=== PATIENT | female | born 1955 | race Caucasian/White ===

== ENCOUNTER → 2023-04-12 08:57 | Outpatient (REF) | payer MEDICARE, SELFPAY ==
[2023-04-12 10:56] LABS: TSH Reflex To Free T4 1.93 uIU/ml (0.47-4.68)
[2023-04-14 03:22] LABS: ANA, IgG Reflex to HEp-2 None Detected (None Detected)
[2023-04-14 07:51] LABS: SSA 52 (Ro)(ENA) Ab, IgG 7 AU/mL (0-40); SSA 60 (Ro)(ENA) Ab, IgG 0 AU/mL (0-40); SSB (La)(ENA) Ab, IgG 0 AU/mL (0-40)
[2023-04-14 07:54] LABS: Myeloperoxidase Antibody 0 AU/mL (0-19); Serine Protease-3, IgG 0 AU/mL (0-19)
[2023-04-15 09:25] LABS: Vitamin B6 Results 42.6 nmol/L (20.0-125.0)
[2023-04-15 21:00] LABS: Albumin 4.52 g/dL (3.75-5.01); Alpha 1 Globulin 0.29 g/dL (0.19-0.46); Alpha 2 Globulin 0.68 g/dL (0.48-1.05); SPEP IFE Reflex Not Done; Total Protein-Electrophoresis 7.4 g/dL (6.3-8.2)
== END ==
LOC: REG 08:57
PROVIDERS: ATTENDING PHYSICIAN Psychiatry & Neurology Neurology; OTHER PHYSICIAN Internal Medicine Rheumatology; REFERRING PHYSICIAN Internal Medicine
DX: G62.0 Drug-induced polyneuropathy (principal); M35.00 Sjogren syndrome, unspecified; G60.9 Hereditary and idiopathic neuropathy, unspecified
CPT/HCPCS: 36415; 83516; 84155; 84165; 84207; 84443; 86038; 86235

== ENCOUNTER → 2023-05-03 18:25 | Outpatient (REF) | payer MEDICARE, SELFPAY | LOC: CLAB 18:25 | PROVIDERS: ATTENDING PHYSICIAN Otolaryngology | DX: D37.04 Neoplasm of uncertain behavior of the minor salivary glands (principal) | CPT/HCPCS: 88305; 88342 ==

== ENCOUNTER → 2023-05-15 13:32 | Outpatient (REF) | payer MEDICARE, SELFPAY | LOC: RAD 13:32 | PROVIDERS: ATTENDING PHYSICIAN Nurse Practitioner | DX: J40 Bronchitis, not specified as acute or chronic (principal) | CPT/HCPCS: 71046 ==

== ENCOUNTER → 2023-06-04 07:14 | Outpatient (REF) | payer MEDICARE, SELFPAY ==
[2023-06-04 07:45] LABS: Urine Albumin Negative (Neg - Trace); Urine Bilirubin Negative (Negative); Urine Character Clear (Clear); Urine Color Yellow; Urine Glucose Negative (Negative); Urine Ketone Negative (Negative); Urine Leukocyte Negative (Negative); Urine Nitrite Negative (Negative); Urine Occult Blood Negative (Negative); Urine Specific Gravity 1.015 (<1.030); Urine Urobilinogen Negative (Neg - 1+)
[2023-06-04 07:53] LABS: % Basophils 0.8 % (0-2); % Eosinophils 3.7 % (0-6); % Immature Granulocytes 0.2 % (0-0.5); % Lymphocytes 31.3 % (20.5-51.1); % Monocytes 7.3 % (1.7-9.3); % Neutrophils 56.7 % (42.2-75.2); Absolute Eosinophils 0.2 10^3/uL (0-0.7); Absolute Lymphocytes 1.5 10^3/uL (1.2-3.4); Absolute Monocytes 0.4 10^3/uL (0.1-0.6); Absolute Neutrophils 2.7 10^3/uL (1.4-6.5); Hematocrit 37.4 % (37.0-47.0); Hemoglobin 12.6 g/dL (12.0-16.0); Mean Corp Hgb Conc. 33.7 g/dL (33.0-37.0); Mean Corpuscular Hgb 30.1 pg (27.0-31.0); Mean Corpuscular Volume 89.3 fL (81.0-99.0); Mean Platelet Volume 9.9 fL (7.4-10.4); Nucleated Red Blood Cells % 0 %; Platelet Count 198 10^3/uL (130-400); Red Blood Cell Count 4.19 10^6/uL (4.20-5.40); Red Cell Dist. Width 12.8 % (11.5-14.5); White Blood Cell Count 4.8 10^3/uL (4.8-10.8)
[2023-06-04 08:08] LABS: ALT (SGPT) 27 U/L (0-35); AST (SGOT) 31 U/L (14-36); Albumin 4.7 g/dl (3.5-5.0); Alkaline Phosphatase 70 U/L (38-126); Blood Urea Nitrogen 20 mg/dl (7-17); Calcium 9.5 mg/dl (8.4-10.2); Carbon Dioxide 27 mmol/L (22-30); Chloride 107 mmol/L (98-107); Creatine Phosphokinase 59 U/L (30-135); Glucose 101 mg/dl (70-99); Potassium 4.1 mmol/L (3.5-5.1); Sodium 138 mmol/L (135-145); Total Bilirubin 0.8 mg/dl (0.2-1.3); Total Protein 7.5 g/dl (6.3-8.2); eGFR > 60.00
[2023-06-04 08:09] LABS: Erythrocyte Sed Rate 17 mm/hour (0-20)
[2023-06-04 08:18] LABS: C-Reactive Protein < 5.00 mg/L (0.0-10.00)
[2023-06-04 08:35] LABS: Vitamin D, 25-OH*** 56.2 ng/mL (30-80)
[2023-06-04 08:38] LABS: Hepatitis B Surface Antigen Negative (Negative)
[2023-06-04 08:55] LABS: Hepatitis C Antibody Negative (Negative)
[2023-06-04 09:24] LABS: Folate > 20.0 ng/ml (2.76-20); Vitamin B12 741 pg/ml (239-931)
[2023-06-06 00:23] LABS: Complement C3 105 mg/dl (88-165)
[2023-06-06 01:25] LABS: CCP Antibody IgG/IgA 3 Units (0-19)
[2023-06-09 01:14] LABS: Cryoglobulin NEG 72Hour (NEG 72Hour)
[2023-06-10 16:17] LABS: Rheumatoid Agglutinin Less Than 10 IU (<10 IU)
== END ==
LOC: REG 07:14
PROVIDERS: ATTENDING PHYSICIAN Internal Medicine Rheumatology; FAMILY PHYSICIAN Nurse Practitioner
DX: D89.1 Cryoglobulinemia (principal); E55.9 Vitamin D deficiency, unspecified; G62.9 Polyneuropathy, unspecified; M25.50 Pain in unspecified joint; M35.00 Sjogren syndrome, unspecified; Z11.59 Encounter for screening for other viral diseases; Z68.27 Body mass index [BMI] 27.0-27.9, adult; Z79.899 Other long term (current) drug therapy; R73.03 Prediabetes
CPT/HCPCS: 36415; 80053; 81003; 82306; 82550; 82595; 82607; 82746; 83036; 85025; 85652; 86140; 86160; 86200; 86430; 86803; 87340

== ENCOUNTER → 2023-07-19 15:25 | Outpatient (REF) | payer MEDICARE, SELFPAY | LOC: WDC 15:25 | PROVIDERS: ATTENDING PHYSICIAN Nurse Practitioner | DX: Z12.31 Encounter for screening mammogram for malignant neoplasm of breast (principal) | CPT/HCPCS: 77063; 77067 ==

== ENCOUNTER → 2023-07-25 10:34 | Outpatient (REF) | payer MEDICARE, SELFPAY | LOC: WDC 10:34 | PROVIDERS: ATTENDING PHYSICIAN Nurse Practitioner | DX: R92.8 Other abnormal and inconclusive findings on diagnostic imaging of breast (principal) | CPT/HCPCS: 76642 ==

== ENCOUNTER → 2023-08-22 10:19 | Outpatient (REF) | payer MEDICARE, SELFPAY | LOC: RAD 10:19 | PROVIDERS: ATTENDING PHYSICIAN Physician Assistant; FAMILY PHYSICIAN Nurse Practitioner | DX: R10.32 Left lower quadrant pain (principal) | CPT/HCPCS: 74177; Q9967 ==

== ENCOUNTER → 2024-01-27 14:49 | Outpatient (REF) | payer MEDICARE, SELFPAY | LOC: WDC 14:49 | PROVIDERS: ATTENDING PHYSICIAN Internal Medicine | DX: N63.20 Unspecified lump in the left breast, unspecified quadrant (principal); R92.8 Other abnormal and inconclusive findings on diagnostic imaging of breast | CPT/HCPCS: 76642 ==

== ENCOUNTER → 2024-02-19 08:55 | Outpatient (REF) | payer MEDICARE, SELFPAY ==
[2024-02-19 14:40] LABS: Iron 74 ug/dl (37-170)
[2024-02-19 14:49] LABS: Percent Saturation 25 % (20-50); Total Iron Binding Capacity 290 ug/dl (265-497)
[2024-02-19 14:57] LABS: Prolactin 5.3 ng/ml (3.0-18.6)
[2024-02-19 15:11] LABS: TSH 0.82 uIU/ml (0.47-4.68)
[2024-02-19 15:17] LABS: Ferritin 37.7 ng/ml (11.1-264.0)
[2024-02-21 16:01] LABS: Thyroid Peroxidase Ab (TPO) <0.3 IU/mL (0.0-9.0)
[2024-02-21 16:15] LABS: Thyroglobulin 24.3 ng/mL (1.3-31.8); Thyroglobulin Antibodies <0.9 IU/mL (0.0-4.0)
[2024-02-22 01:17] LABS: Total T3 (Sendout) 88 ng/dL (80-200)
== END ==
LOC: REG 08:55
PROVIDERS: ATTENDING PHYSICIAN General Practice; FAMILY PHYSICIAN Internal Medicine
DX: L65.9 Nonscarring hair loss, unspecified (principal); Z79.899 Other long term (current) drug therapy
CPT/HCPCS: 36415; 82728; 83540; 83550; 84146; 84432; 84439; 84443; 84480; 86376; 86800

== ENCOUNTER → 2024-06-25 07:57 | Outpatient (REF) | payer MEDICARE, SELFPAY | LOC: RAD 07:57 | PROVIDERS: ATTENDING PHYSICIAN Internal Medicine; FAMILY PHYSICIAN Internal Medicine | DX: M54.59 Other low back pain (principal); M43.16 Spondylolisthesis, lumbar region | CPT/HCPCS: 72110 ==

== ENCOUNTER → 2024-07-01 09:14 | Outpatient (REF) | payer MEDICARE, SELFPAY | LOC: RAD 09:14 | PROVIDERS: ATTENDING PHYSICIAN Nurse Practitioner; REFERRING PHYSICIAN Obstetrics & Gynecology Gynecology | DX: M85.80 Other specified disorders of bone density and structure, unspecified site (principal); M81.0 Age-related osteoporosis without current pathological fracture | CPT/HCPCS: 77080 ==

== ENCOUNTER → 2024-07-20 15:14 | Outpatient (REF) | payer MEDICARE, SELFPAY | LOC: WDC 15:14 | PROVIDERS: ATTENDING PHYSICIAN Nurse Practitioner; REFERRING PHYSICIAN Obstetrics & Gynecology Gynecology | DX: Z12.31 Encounter for screening mammogram for malignant neoplasm of breast (principal) | CPT/HCPCS: 77063; 77067 ==

== ENCOUNTER → 2024-08-13 08:51 | Outpatient (REF) | payer MEDICARE, SELFPAY | LOC: WDC 08:51 | PROVIDERS: ATTENDING PHYSICIAN Nurse Practitioner | DX: R92.8 Other abnormal and inconclusive findings on diagnostic imaging of breast (principal) | CPT/HCPCS: 76642 ==

== ENCOUNTER 2024-09-25 06:16 | Day surgery (SDC) | payer MEDICARE, SELFPAY | END 2024-09-25 09:13 | disposition home or self-care (01) | LOC: GI 06:16 | PROVIDERS: ATTENDING PHYSICIAN Specialist | DX: Z12.11 Encounter for screening for malignant neoplasm of colon (principal); K57.30 Diverticulosis of large intestine without perforation or abscess without bleeding; K63.5 Polyp of colon; Z80.0 Family history of malignant neoplasm of digestive organs | CPT/HCPCS: 45385; 88305 ==

== ENCOUNTER → 2025-01-27 06:42 | Outpatient (REF) | payer MEDICARE, SELFPAY ==
[2025-01-27 08:22] LABS: ALT (SGPT) 28 U/L (0-35); AST (SGOT) 32 U/L (14-36); Albumin 4.7 g/dl (3.5-5.0); Alkaline Phosphatase 65 U/L (38-126); Blood Urea Nitrogen 12 mg/dl (7-17); Calcium 9.2 mg/dl (8.4-10.2); Carbon Dioxide 31 mmol/L (22-30); Chloride 104 mmol/L (98-107); Glucose 97 mg/dl (70-99); HDL Cholesterol 83 mg/dl; LDL Cholesterol, Calculated 80 mg/dl; Potassium 4.3 mmol/L (3.5-5.1); Sodium 140 mmol/L (135-145); Total Protein 7.2 g/dl (6.3-8.2); Very Low Density Lipoprotein 18 mg/dl (0-30); eGFR > 60.00
== END ==
LOC: REG 06:42
PROVIDERS: ATTENDING PHYSICIAN Internal Medicine Cardiovascular Disease; FAMILY PHYSICIAN Internal Medicine
DX: E78.2 Mixed hyperlipidemia (principal)
CPT/HCPCS: 36415; 80053; 80061

== ENCOUNTER → 2025-02-11 07:50 | Outpatient (REF) | payer MEDICARE, SELFPAY | LOC: EMG 07:50 | PROVIDERS: ATTENDING PHYSICIAN Podiatrist; FAMILY PHYSICIAN Internal Medicine | DX: G62.89 Other specified polyneuropathies (principal); R20.2 Paresthesia of skin | CPT/HCPCS: 95886; 95910 ==